=== PATIENT | male | born 1970 | race Caucasian/White ===

== ENCOUNTER 2016-08-03 12:27 | Emergency (ER) | payer BC, OTHER ==
[~2016-08-03] VITALS: Ht 182.9 cm; Wt 82.0 kg
[2016-08-03 12:28] VITALS: TEMP 36.3; Ht 182.9 cm; Wt 82.0 kg
[2016-08-03] MEDS ORDERED: ONDANSETRON INJ 2 MG/ML 2 ML VIAL IV STA (12:42)
[2016-08-03] MEDS ORDERED: SODIUM CHLORIDE 0.9% 500ML 500 ML IV STA (12:42)
[2016-08-03] MEDS ORDERED: MoRPHine SULFATE 10 MG/ML CARP/VIAL IV STA (12:42)
[2016-08-03] MEDS: MoRPHine SULFATE 10 MG/ML CARP/VIAL IV PRN ×2 (13:00→14:21)
[2016-08-03] MEDS ORDERED: HYDROmorphone INJ 2 MG/ML SYR/VIAL IV STA (13:12)
--- NOTE | 2016-08-03 13:18 | DIAGNOSTIC IMAGING REPORT ---
RIGHT FOREARM 2 VIEWS ROUTINE CLINICAL HISTORY: trauma Right COMPARISON: None. DISCUSSION: Displaced transverse comminuted fracture distal radius. Moderate oropharyngeal angulation. No evidence of dislocation. Probable nondisplaced fracture distal ulna. Soft tissue edema IMPRESSION: Comminuted transverse and dorsally angled fracture distal radius. Possible cortical fracture distal ulna. Electronically signed by: Marvin Rodriguez M.D. 08/03/2016 1:17 PM Dictated Date/Time: 08/03/2016 1:14 PM
--- NOTE | 2016-08-03 13:25 | DIAGNOSTIC IMAGING REPORT ---
LEFT WRIST MIN 3 VIEWS ROUTINE CLINICAL HISTORY: L WRIST trauma. Pain. COMPARISON: None. DISCUSSION: The bones and joint spaces appear intact. There is no evidence of fracture, dislocation or bony disease. There is no evidence for soft tissue swelling. IMPRESSION: Negative study. Electronically signed by: Marvin Rodriguez M.D. 08/03/2016 1:23 PM Dictated Date/Time: 08/03/2016 1:23 PM
[2016-08-03] MEDS ORDERED: BUPIVACAINE 0.5 % 5 MG/1 ML MPF 30ML VIAL INFIL ONE (13:30)
--- NOTE | 2016-08-03 13:37 | DIAGNOSTIC IMAGING REPORT ---
CHEST ONE VIEW PORTABLE CLINICAL HISTORY: trauma pain COMPARISON STUDY: No previous studies for comparison. FINDINGS: The bones soft tissues and hemidiaphragms are normal. The cardiomediastinal silhouette is normal. The lungs are clear. The pulmonary vasculature is normal. IMPRESSION: Negative chest. Electronically signed by: Marvin Rodriguez M.D. 08/03/2016 1:36 PM Dictated Date/Time: 08/03/2016 1:35 PM
--- NOTE | 2016-08-03 15:00 | DIAGNOSTIC IMAGING REPORT ---
RIGHT WRIST 2 VIEW CLINICAL HISTORY: POST REDUCTION Right fracture COMPARISON: Same date DISCUSSION: Patient is now casting material. Improved alignment and angulation as compared to the prior study. Persistent dorsal displacement of the distal radius in relation to the radial shaft. There is no evidence for soft tissue swelling. IMPRESSION: Improved alignment status post closed reduction. Persistent dorsal displacement of the distal radius. Electronically signed by: Marvin Rodriguez M.D. 08/03/2016 2:59 PM Dictated Date/Time: 08/03/2016 2:58 PM
[2016-08-03] MEDS ORDERED: OXYC-57 PO (15:09)
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
[2016-08-03] MEDS ORDERED: MONT1TAB5 PO (15:15)
[2016-08-03] MEDS ORDERED: OMEP20TA PO (15:15)
[2016-08-03 15:28] VITALS: BP 114/69; PULSE 66; O2SAT 97
[2016-08-03] MEDS ORDERED: ONDANSETRON HOME PACK 4MG OD TAB PO ONE (15:30)
[2016-08-03] MEDS ORDERED: ONDANSETRON 4MG OD TAB PO ONE (15:30)
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
[2016-08-08] MEDS ORDERED: OXYC-57 PO (16:40)
== END 2016-08-03 15:37 | disposition home or self-care (01) ==
LOC: C.EDB 12:28
DX: S52.501A Unspecified fracture of the lower end of right radius, initial encounter for closed fracture (principal); V17.4XXA Pedal cycle driver injured in collision with fixed or stationary object in traffic accident, initial encounter; Y92.488 Other paved roadways as the place of occurrence of the external cause; M25.532 Pain in left wrist; R07.9 Chest pain, unspecified

== ENCOUNTER → 2016-08-05 | Outpatient (CLI) | payer BC ==
[~2016-08-05] MED LIST: MONT1TAB5 PO; OMEP20TA PO; OXYC-57 PO
== END | disposition home or self-care (01) ==
LOC: C.RDSM 15:33
PROVIDERS: ATTEND Physical Medicine & Rehabilitation Sports Medicine
DX: M25.531 Pain in right wrist (principal)

== ENCOUNTER → 2016-08-06 | Outpatient (CLI) | payer BC ==
--- NOTE | 2016-08-06 13:36 | DIAGNOSTIC IMAGING REPORT ---
CT SCAN OF THE RIGHT WRIST WITHOUT IV CONTRAST CLINICAL HISTORY: Colles' fracture. Wrist pain. COMPARISON STUDY: Radiographs of the right wrist dated 08/05/2016 and 08/03/2016. TECHNIQUE: CT scan of the right wrist is performed. Images are reviewed in the axial, sagittal, coronal planes. IV contrast was not administered for this examination. 3-D reformats are created and assessed. CT DOSE: 181.20 mGy.cm FINDINGS: The skeletal structures are well mineralized. There is a small avulsion fracture from the ulnar styloid. There is an impacted and comminuted fracture of the distal radial metaphysis. No significant angulation is seen. There are numerous small distracted fragments. The largest fragments are distracted anteriorly. No additional fracture is identified. Soft tissue edema is present around the wrist. Mild cystic degenerative change is noted within the trapezium and the trapezoid. The partially imaged flexor and extensor tendons are grossly intact. IMPRESSION: 1. There is an impacted and comminuted fracture of the distal radial metaphysis as detailed above. 2. There is a small avulsion fracture of the ulnar styloid. Dictated: 08/06/2016 9:50 AM Transcribed: 08/06/2016 1:36 PM CHLOE_Marika Electronically signed by: Claude Ji M.D. 08/06/2016 2:40 PM Dictated Date/Time: 08/06/2016 9:50 AM
== END | disposition home or self-care (01) ==
LOC: C.CTS 09:06
PROVIDERS: ATTEND Physical Medicine & Rehabilitation Sports Medicine
DX: S52.531A Colles' fracture of right radius, initial encounter for closed fracture (principal); X58.XXXA Exposure to other specified factors, initial encounter

== ENCOUNTER → 2016-08-08 | Day surgery (SDC) | payer BC ==
[2016-08-07 15:27] VITALS: Ht 182.9 cm; Wt 81.8 kg
[~2016-08-08] VITALS: Ht 182.9 cm; Wt 81.8 kg
[~2016-08-08] MED LIST changes: +ATROPINE SULFATE 0.1 MG/ML 5ML SYR IV PRN; +BUPIVACAINE 0.5 % 5 MG/1 ML MPF 30ML VIAL ONE; +BUPIVACAINE/EPINEPHRINE 0.5% MPF 1:200,000 30 ML VIAL ONE; +CEFAZOLIN 2000 MG/60 ML D5W IV SCH; +CEFAZOLIN IV 2,000 MG/60 ML D5W IV ONE; +DEXAMETHASONE SOD INJ 4 MG/ML VIAL ONE; +FENTANYL CITRATE INJ 50 MCG/1 ML 2 ML VIAL ONE; +KETOROLAC TROMETHAMINE 30 MG/ML VIAL IV. PRN; +KETOROLAC TROMETHAMINE 30 MG/ML VIAL ONE; +LACTATED RINGER'S 1000ML 1,000 ML IV SCH; +LIDOCAINE HCL 2% 2 ML VIAL (20MG/ML) ONE; +LIDOCAINE MPF 1% INJ 30 ML SDV (L&D) INFIL ONE; +LIDOCAINE/EPINEPHRINE 1% INJ 50 ML VIAL ONE; +MIDAZOLAM HCL 1 MG/ML 2ML VIAL ONE; +MoRPHine SULFATE 2 MG/ML CARP IV PRN; +MoRPHine SULFATE 4 MG/ML 1 ML CARP\\VIAL IV PRN; +ONDANSETRON INJ 2 MG/ML 2 ML VIAL IV PRN; +ONDANSETRON INJ 2 MG/ML 2 ML VIAL ONE; +OXYCODONE/ACETAMINOPHEN 5-325 TAB PO PRN; +POVIDONE-IODINE OP SOLN 30 ML BTL ONE; +PROPOFOL IV EMULSION 10 MG/ML 20 ML VIAL IV ONE; +SODIUM CHLORIDE 0.9% 1000ML 1,000 ML IV SCH
--- NOTE | 2016-08-08 13:55 | History & Physical Bridge Note ---
H&P Re-Evaluation Bridge Note: I have examined the patient, reviewed the History & Physical and in the interval since the performance of the History & Physical I have noted the following changes of clinical significance: No changes noted
--- NOTE | 2016-08-08 16:27 | [facility] Post Operative Brief Note ---
Immediate Operative Summary Operative Date August 08, 2016. Pre-Operative Diagnosis Right Distal Radius Fracture Post-Operative Diagnosis Same Procedure(s) Performed Right Distal Radius Open Reduction Internal Fixation Surgeon Dr. Do Nail Technician Surgeon(s) Francisca Figueroa PA-C, roger julian, fellow Estimated Blood Loss 20cc Findings comminuted distal radius fracture Specimens None Drains 0 Anesthesia general Complication(s) None Disposition Recovery Room / PACU
--- NOTE | 2016-08-08 16:34 | Discharge Instructions-SurgCtr ---
Discharge Instructions Date of Service August 08, 2016. Visit Reason for Visit: Right Distal Radius Fx Discharge Discharge Diagnosis / Problem: Right distal radius fracture Discharge Goals Goal(s): Decrease discomfort, Improve function, Increase independence Activity Recommendations Activity Limitations: per Instructions/Follow-up section Weightbearing Status: Right non-weightbearing Anesthesia . Post Anesthesia Instructions: If you have had General Anesthesia or IV Sedation: * Do not drive today. * Resume driving when surgeon permits. * Do not make important decisions or sign legal documents today. * Call surgeon for: 1. Temperature elevations greater than 101 degrees F. 2. Uncontrollable pain. 3. Excessive bleeding. 4. Persistent nausea and vomiting. 5. Medication intolerance (nausea, vomiting or rash). * For nausea and vomiting use only clear liquids such as: tea, soda, bouillon until nausea subsides, then gradually increase diet as tolerated. * If you have any concerns or questions, call your surgeon's office. If physician is unavailable and it is an emergency, call 911 or go to the nearest emergency room. . Instructions / Follow-Up Instructions / Follow-Up DIET: * Resume previous diet. MEDICATIONS: * Please take your prescriptions as instructed at your pre-op appointment and/ or see medication discharge instructions listed above. * If concerns develop, call your physician's office at . SPECIAL CARE INSTRUCTIONS: * Ice to right wrist as needed for pain/swelling * Elevate right hand/wrist above heart to relieve pain/swelling. * Keep dressing clean, dry, intact. Keep splint on at all times. * Okay to move fingers and elbow as tolerated. * Your surgical extremity may be discolored due to prepping agents used on the skin. A bluish-green tint is a normal variant and should not cause alarm. Call your doctor at [phone] if: * Temperature above 101 degrees * Pain not relieved by pain medicine ordered * There is increased drainage or redness from any incision * You have any unanswered questions, problems or concerns. FOLLOW UP VISIT: * If not already scheduled, please call the office at to schedule a follow-up appointment. Diet Recommendations Home Diet: no limitations, resume previous diet Procedures Procedures Performed: Right Distal Radius Open Reduction Internal Fixation Pending Studies Studies pending at discharge: no Medical Emergencies . Who to Call and When: Medical Emergencies: If at any time you feel your situation is an emergency, please call 911 immediately. . Non-Emergent Contact Non-Emergency issues call your: Surgeon Call Non-Emergent contact if: temperature is above 101, your pain is not controlled, your pain is concerning you, wound has increased drainage, you have any medication questions . . "Provider Documentation" section prepared by Nicole Figueroa. .
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
[2016-08-08] MEDS: FENTANYL CITRATE INJ 50 MCG/1 ML 2 ML VIAL IV PRN ×2 (16:47→17:00)
[2016-08-08] MEDS: LABETALOL HCL IV 5 MG/ML 20ML IV PRN ×3 (17:12→17:27)
[2016-08-08 17:48] VITALS: TEMP 36.8
--- NOTE | 2016-08-08 18:16 | Anesthesia Progress Nt - [facility] ---
Anesthesia Post Op Note Date & Time August 08, 2016 at 18:17 Vital Signs Vital Signs Past 12 Hours Date Time Temp Pulse Resp B/P Pulse Ox O2 Delivery O2 Flow Rate FiO2 08/08/16 17:48 36.8 70 16 152/98 95 Room Air 08/08/16 17:36 36.8 08/08/16 17:36 71 16 176/114 96 08/08/16 17:34 71 14 08/08/16 17:34 72 14 94 08/08/16 17:33 166/105 08/08/16 17:32 162/99 08/08/16 17:31 154/98 08/08/16 17:29 71 15 08/08/16 17:29 71 15 96 08/08/16 17:26 155/104 08/08/16 17:24 69 6 08/08/16 17:24 70 6 153/103 100 08/08/16 17:21 153/100 08/08/16 17:19 70 14 100 08/08/16 17:19 70 14 08/08/16 17:18 158/97 08/08/16 17:16 151/101 08/08/16 17:14 72 9 91 08/08/16 17:14 73 9 08/08/16 17:11 158/101 08/08/16 17:09 76 11 08/08/16 17:09 77 11 95 08/08/16 17:06 160/101 08/08/16 17:04 78 13 97 08/08/16 17:04 78 13 08/08/16 17:01 160/101 08/08/16 16:59 80 20 08/08/16 16:59 79 20 97 08/08/16 16:56 165/100 08/08/16 16:54 82 9 08/08/16 16:54 82 9 100 08/08/16 16:51 166/96 08/08/16 16:49 81 6 100 08/08/16 16:49 81 6 08/08/16 16:46 167/103 08/08/16 16:44 80 11 100 08/08/16 16:44 80 11 08/08/16 16:41 163/108 08/08/16 16:39 88 16 99 08/08/16 16:39 88 16 08/08/16 16:36 165/100 08/08/16 16:34 79 9 08/08/16 16:34 79 9 100 08/08/16 16:31 167/105 08/08/16 16:29 86 08/08/16 16:29 86 168/100 97 08/08/16 16:28 36.3 86 16 168/100 96 Diffusion Mask 8 08/08/16 11:26 36.6 56 16 136/88 96 Room Air Notes Mental Status: alert / awake / arousable, participated in evaluation Pt Amnestic to Procedure: Yes Nausea / Vomiting: adequately controlled Pain: adequately controlled Airway Patency, RR, SpO2: stable & adequate BP & HR: stable & adequate Hydration State: stable & adequate Anesthetic Complications: no major complications apparent
[2016-08-08 18:20] VITALS: BP 147/90; PULSE 70; O2SAT 96
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
== END | disposition home or self-care (01) ==
LOC: X.SURG 11:11
PROVIDERS: ATTEND Physical Medicine & Rehabilitation Sports Medicine
DX: S52.532A Colles' fracture of left radius, initial encounter for closed fracture (principal); K21.9 Gastro-esophageal reflux disease without esophagitis; V18.0XXA Pedal cycle driver injured in noncollision transport accident in nontraffic accident, initial encounter

== ENCOUNTER → 2016-08-19 | Outpatient (CLI) | payer BC ==
[~2016-08-19] MED LIST changes: -ATROPINE SULFATE 0.1 MG/ML 5ML SYR IV PRN; -BUPIVACAINE 0.5 % 5 MG/1 ML MPF 30ML VIAL ONE; -BUPIVACAINE/EPINEPHRINE 0.5% MPF 1:200,000 30 ML VIAL ONE; -CEFAZOLIN 2000 MG/60 ML D5W IV SCH; -CEFAZOLIN IV 2,000 MG/60 ML D5W IV ONE; -DEXAMETHASONE SOD INJ 4 MG/ML VIAL ONE; -FENTANYL CITRATE INJ 50 MCG/1 ML 2 ML VIAL ONE; -KETOROLAC TROMETHAMINE 30 MG/ML VIAL IV. PRN; -KETOROLAC TROMETHAMINE 30 MG/ML VIAL ONE; -LACTATED RINGER'S 1000ML 1,000 ML IV SCH; -LIDOCAINE HCL 2% 2 ML VIAL (20MG/ML) ONE; -LIDOCAINE MPF 1% INJ 30 ML SDV (L&D) INFIL ONE; -LIDOCAINE/EPINEPHRINE 1% INJ 50 ML VIAL ONE; -MIDAZOLAM HCL 1 MG/ML 2ML VIAL ONE; -MoRPHine SULFATE 2 MG/ML CARP IV PRN; -MoRPHine SULFATE 4 MG/ML 1 ML CARP\\VIAL IV PRN; -ONDANSETRON INJ 2 MG/ML 2 ML VIAL IV PRN; -ONDANSETRON INJ 2 MG/ML 2 ML VIAL ONE; -OXYCODONE/ACETAMINOPHEN 5-325 TAB PO PRN; -POVIDONE-IODINE OP SOLN 30 ML BTL ONE; -PROPOFOL IV EMULSION 10 MG/ML 20 ML VIAL IV ONE; -SODIUM CHLORIDE 0.9% 1000ML 1,000 ML IV SCH
== END | disposition home or self-care (01) ==
LOC: C.RDSM 13:19
PROVIDERS: ATTEND Physical Medicine & Rehabilitation Sports Medicine
DX: M25.521 Pain in right elbow (principal); S52.531A Colles' fracture of right radius, initial encounter for closed fracture; X58.XXXA Exposure to other specified factors, initial encounter

== ENCOUNTER → 2016-09-24 | Outpatient (CLI) | payer BC | END | disposition home or self-care (01) | LOC: C.RDSM 09:15 | PROVIDERS: ATTEND Physical Medicine & Rehabilitation Sports Medicine | DX: S52.531A Colles' fracture of right radius, initial encounter for closed fracture (principal); X58.XXXA Exposure to other specified factors, initial encounter ==

== ENCOUNTER → 2016-11-08 | Outpatient (CLI) | payer BC | END | disposition home or self-care (01) | LOC: C.RDSM 08:00 | PROVIDERS: ATTEND Physical Medicine & Rehabilitation Sports Medicine | DX: S52.531A Colles' fracture of right radius, initial encounter for closed fracture (principal); X58.XXXA Exposure to other specified factors, initial encounter; R20.0 Anesthesia of skin ==

== ENCOUNTER → 2017-01-03 | Outpatient (CLI) | payer BC | END | disposition home or self-care (01) | LOC: C.RDSM 15:38 | PROVIDERS: ATTEND Physical Medicine & Rehabilitation Sports Medicine | DX: S52.531D Colles' fracture of right radius, subsequent encounter for closed fracture with routine healing (principal); X58.XXXD Exposure to other specified factors, subsequent encounter ==